=== PATIENT | female | born 1985 | race African-American/Black ===

== ENCOUNTER 2016-08-12 10:57 | Inpatient (IN) | payer OTHER ==
[~2016-08-12] VITALS: Ht 162.6 cm; Wt 56.8 kg
[2016-08-12 13:05] LABS: ADD MIUA? YES; BILIRUBIN NEGATIVE; BLOOD LARGE; COLOR YELLOW ((YELLOW)); GLUCOSE (STRIP) NEGATIVE; KETONES NEGATIVE; LEUKOCYTES NEGATIVE; NITRITE NEGATIVE; PROTEIN (STRIP) >=500; SPECIFIC GRAVITY 1.012 (1.000-1.030); UROBILINOGEN 0.2 MG/DL (0.2-1.0)
[2016-08-12 13:10] LABS: CHLORIDE 97 mEq/L (99-109); POTASSIUM 2.7 mEq/L (3.7-5.4); SODIUM 136 mEq/L (136-147)
[2016-08-12 13:12] LABS: GLUCOSE 102 mg/dL (70-99)
[2016-08-12 13:13] LABS: ANION GAP 12 MEQ/L (2-14)
[2016-08-12 13:14] LABS: HEMATOCRIT 41.8 % (36.0-46.0); MCH 27.8 PG (29.0-34.0); MCHC 33.7 G/DL (30.0-36.0); MCV 82.3 FL (83-99); RBC DIS.WIDTH-CV 12.9 % (11.8-14.6); RBC DIS.WIDTH-SD 38.7 % (39-53); RED BLOOD COUNT 5.08 M/uL (3.80-5.20); WHITE BLOOD COUNT 9.7 K/uL (4.1-10.2)
[2016-08-12 13:14] LABS: TOTAL BILIRUBIN 1.2 mg/dL (0.0-1.0)
[2016-08-12 13:14] LABS: ADD MEDTOX COMMENT Y; AMPHETAMINE NEGATIVE (500 ng/mL); BARBITURATES PRESUMPTIVE POSITIVE (200 ng/mL); BENZODIAZEPINES NEGATIVE (150 ng/mL); COCAINE NEGATIVE (150 ng/mL); INTERNAL CONTROLS VALID? YES; METHADONE NEGATIVE (200 ng/mL); METHAMPHETAMINE NEGATIVE (500 ng/mL); OPIATES (MORPHINE) NEGATIVE (100 ng/mL); OXYCODONE NEGATIVE (100 ng/mL); PHENCYCLIDINE NEGATIVE (25 ng/mL); PROPOXYPHENE NEGATIVE (300 ng/mL); THC CANNABINOIDS NEGATIVE (50 ng/mL); TRICYCLIC ANTIDEPRESSANTS NEGATIVE (300 ng/mL)
[2016-08-12 13:15] LABS: ALKALINE PHOSPHATASE 57 IU/L (3-129)
[2016-08-12 13:16] LABS: GFR ESTIMATE (CALCULATED) 29 mL/min/
[2016-08-12 13:17] LABS: UREA NITROGEN (BUN) 24 mg/dL (9-23)
[2016-08-12 13:19] LABS: TROP-I INTERPRETATION NEGATIVE; TROPONIN-I 0.04 ng/mL (0.0-0.30)
[2016-08-12 13:19] LABS: LIPASE 39 U/L (1.0-51.0)
[2016-08-12 13:21] LABS: BACTERIA NONE SEEN /HPF; CALCIUM OXALATE CRYSTALS 4+ /HPF; EPITHELIAL CELLS 1+ /HPF; MUCUS NONE SEEN /LPF; RED BLOOD CELLS TNTC /HPF (0-5)
[2016-08-12 14:06] LABS: MEAN PLAT.VOLUME 12.7 uM^3 (9.5-12.4); PLATELET COUNT 115 K/uL (156-360)
[2016-08-12] MEDS ORDERED: ADVIL,NUPRIN,M200 MG PO (15:10)
[2016-08-12 16:43] LABS: QUANTITATIVE HCG < 4.0 MIU/ML
[2016-08-12 17:50] VITALS: BP 186/112
[2016-08-12 18:53] LABS: MAGNESIUM 2.2 mg/dL (1.3-2.7)
[2016-08-12 19:00] LABS: CREATINE KINASE 183 IU/L (1-294)
[2016-08-12 19:13] LABS: TROP-I INTERPRETATION INDETERMINATE; TROPONIN-I 0.33 ng/mL (0.0-0.30)
[2016-08-12 19:26] VITALS: BP 173/105
[2016-08-12 21:58] LABS: UR CREATININE CONCENTRATION 127.1 MG/DL
[2016-08-12 22:32] LABS: URINE TOTAL PROTEIN 469 MG/DL (0-10)
[2016-08-13] VITALS (9 sets, daily range): BP systolic 114–207; BP diastolic 59–129
[2016-08-13 01:14] LABS: TROP-I INTERPRETATION POSITIVE; TROPONIN-I 0.91 ng/mL (0.0-0.30)
[2016-08-13 07:40] LABS: HEMATOCRIT 34.8 % (36.0-46.0); MCH 28.7 PG (29.0-34.0); MCHC 34.2 G/DL (30.0-36.0); MCV 83.9 FL (83-99); MEAN PLAT.VOLUME 12.8 uM^3 (9.5-12.4); PLATELET COUNT 109 K/uL (156-360); RBC DIS.WIDTH-SD 42.7 % (39-53); RED BLOOD COUNT 4.15 M/uL (3.80-5.20)
[2016-08-13 07:43] LABS: ANION GAP 10 MEQ/L (2-14); CHLORIDE 100 MEQ/L (99-109); GFR ESTIMATE (CALCULATED) 32 mL/min/; GLUCOSE 105 mg/dL (70-99); MAGNESIUM 2.8 mg/dl (1.3-2.7); SAMPLE HEMOLYSIS CHECK 0; SAMPLE ICTERIC CHECK 0; SAMPLE LIPEMIA CHECK 0; SODIUM 134 MEQ/L (136-147); UREA NITROGEN (BUN) 24 mg/dL (9-23)
[2016-08-13 07:44] LABS: C3 COMPLEMENT 125 MG/DL (58-170); C4 COMPLEMENT 51 MG/DL (10-40)
[2016-08-13 07:45] LABS: WHITE BLOOD COUNT 13.5 K/uL (4.1-10.2)
[2016-08-13 07:46] LABS: POTASSIUM 3.3 MEQ/L (3.7-5.4)
[2016-08-13 08:47] LABS: TROP-I INTERPRETATION POSITIVE; TROPONIN-I 0.77 ng/mL (0.0-0.30)
[2016-08-13 10:11] LABS: AHBS INDEX 625.34; HBSG INDEX 0.19; HEPATITIS B SURFACE ANTIBODY REACTIVE; HPCA INDEX 0.13
[2016-08-13 10:12] LABS: ANTI-HEPATITIS B CORE (TOTAL) Nonreactive; HBCT INDEX 0.24
[2016-08-14 04:52] VITALS: BP 107/63
[2016-08-14 07:15] LABS: ANION GAP 9 MEQ/L (2-14); CHLORIDE 100 MEQ/L (99-109); GFR ESTIMATE (CALCULATED) 26 mL/min/; GLUCOSE 97 mg/dL (70-99); POTASSIUM 3.9 MEQ/L (3.7-5.4); SAMPLE HEMOLYSIS CHECK 0; SAMPLE ICTERIC CHECK 0; SAMPLE LIPEMIA CHECK 0; SODIUM 135 MEQ/L (136-147); UREA NITROGEN (BUN) 29 mg/dL (9-23)
[2016-08-14 08:00] VITALS: BP 122/67
[2016-08-14 11:35] VITALS: BP 133/84
[2016-08-14 15:49] VITALS: BP 127/84
[2016-08-14 17:21] LABS: GLOMERULAR BASEMENT MEMB ABY+ <1.0 AI (<1.0); MYELOPEROXIDASE ANTIBODY (MPO) <1.0 AI (<1.0); PROTEINASE-3 ANTIBODY+ <1.0 AI (<1.0)
[2016-08-14 19:46] VITALS: BP 123/76
[2016-08-15 00:07] VITALS: BP 124/70
[2016-08-15 04:45] VITALS: BP 136/79
[2016-08-15 07:14] LABS: ANION GAP 8 MEQ/L (2-14); CHLORIDE 104 MEQ/L (99-109); GFR ESTIMATE (CALCULATED) 28 mL/min/; GLUCOSE 89 mg/dL (70-99); SAMPLE HEMOLYSIS CHECK 0; SAMPLE ICTERIC CHECK 0; SAMPLE LIPEMIA CHECK 0; SODIUM 137 MEQ/L (136-147); UREA NITROGEN (BUN) 32 mg/dL (9-23)
[2016-08-15 07:50] VITALS: BP 134/83
[2016-08-15 11:03] VITALS: BP 125/69
[2016-08-15] MEDS ORDERED: AMLODIPINE BESY10 MG PO (11:07)
[2016-08-15] MEDS ORDERED: LISINOPRIL20 MG PO (11:07)
[2016-08-15] MEDS ORDERED: TRAMADOL HCL50 MG PO (11:07)
[2016-08-15] MEDS ORDERED: LOPRESSOR25 MG PO (11:07)
[2016-08-15 15:02] VITALS: BP 125/84
[2016-08-15 15:49] LABS: IFE GEL NO. 33-6
[2016-08-15 15:50] LABS: IFE GEL NO. 33-8
[2016-08-16 11:52] LABS: MNPH Specimen Volume 1100 mL (())
[2016-08-16 12:06] LABS: CATU Urine Volume 1100 mL/24 h (()); Calculated Total (E and NE) 24 mcg/24 h (26-121); Dopamine, 24 hr Urine 70 mcg/24 h (52-480); Epinephrine, 24 hr Urine 5 mcg/24 h (2-24); Norepinephrine, 24 hr Ur 19 mcg/24 h (15-100)
[2016-08-18 03:28] LABS: Cryoglobulin, Qualitative None Detected (None Detected)
== END 2016-08-15 18:25 | disposition home or self-care (01) | DRG 305 ==
LOC: EME 10:57 → EDOF 15:59 → 4EAST 15:59
PROVIDERS: Emergency Medicine; Hospitalist; Internal Medicine; Internal Medicine Cardiovascular Disease; Nurse Practitioner Family
DX: I16.0 Hypertensive urgency (principal); N17.9 Acute kidney failure, unspecified; F33.9 Major depressive disorder, recurrent, unspecified; E87.6 Hypokalemia; G43.909 Migraine, unspecified, not intractable, without status migrainosus; I12.9 Hypertensive chronic kidney disease with stage 1 through stage 4 chronic kidney disease, or unspecified chronic kidney disease; D69.6 Thrombocytopenia, unspecified; F17.210 Nicotine dependence, cigarettes, uncomplicated; F10.10 Alcohol abuse, uncomplicated; N94.6 Dysmenorrhea, unspecified; R00.0 Tachycardia, unspecified; I51.7 Cardiomegaly; N18.3 Chronic kidney disease, stage 3 (moderate); R74.8 Abnormal levels of other serum enzymes; F41.9 Anxiety disorder, unspecified; R31.21 Asymptomatic microscopic hematuria; R80.9 Proteinuria, unspecified; H53.40 Unspecified visual field defects; H53.8 Other visual disturbances; Z82.3 Family history of stroke; Z82.49 Family history of ischemic heart disease and other diseases of the circulatory system
CPT/HCPCS: 70450; 70551; 71020; 76770; 80048; 80053; 80069; 81003; 82088 90; 82384 90; 82530 90; 82550; 82570; 82595 90; 83520 90; 83690; 83735; 83835 90; 84156; 84244 90; 84443; 84484; 84702; 84999; 85027; 86021 90; 86038; 86160; 86334; 86335; 86704; 86706; 86803; 87340; 93005; 93306; 93975; 99281; 99285; J0360; J2405; J3475; J3480; J7030

== ENCOUNTER 2017-07-28 09:55 | Emergency (ER) | payer OTHER ==
[~2017-07-28] VITALS: Ht 165.1 cm; Wt 61.3 kg
[~2017-07-28 09:55] MED LIST: ADVIL,NUPRIN,M200 MG PO; AMLODIPINE BESY10 MG PO; LISINOPRIL20 MG PO; LOPRESSOR25 MG PO; TRAMADOL HCL50 MG PO
[2017-07-28] MEDS ORDERED: VALSARTAN320 MG PO (11:38)
[2017-07-28 12:00] VITALS: BP 142/80
== END 2017-07-28 12:01 | disposition home or self-care (01) ==
LOC: EME 09:55
DX: T78.3XXA Angioneurotic edema, initial encounter (principal); T46.4X5A Adverse effect of angiotensin-converting-enzyme inhibitors, initial encounter; I10 Essential (primary) hypertension; F43.10 Post-traumatic stress disorder, unspecified; F17.200 Nicotine dependence, unspecified, uncomplicated
CPT/HCPCS: 99281; 99284; J1100